=== PATIENT | male | born 1945 | race African-American/Black ===

== ENCOUNTER 2021-04-14 10:10 | Outpatient (REF) | payer MEDICARE, SELFPAY ==
--- NOTE | ~2021-04-14 | XR_ITS ---
EXAMINATION: XR CHEST CLINICAL INFORMATION: Allergic rhinitis. COMPARISON: None TECHNIQUE: 2 views of the chest were obtained. FINDINGS: No significant abnormality is noted involving the heart, lungs, mediastinum, bony thorax or soft tissues. XR/XR chest 2V IMPRESSION: Unremarkable chest examination.
[2021-04-14 11:24] LABS: MANUAL DIFF FLAG NO
[2021-04-14 11:55] LABS: Basophils Percent Auto 0.2 % (0-2); Eosinophils Absolute Auto 0.1 X10*3/uL (0.0-0.4); Eosinophils Percent Auto 1.8 % (0-4); Hematocrit 36.5 % (42.0-52.0); Hemoglobin 12.7 g/dl (14.0-18.0); Imm Gran Abs Auto 0.01 X10*3/uL (0.00-0.03); Imm Gran Pct Auto 0.2 % (0.0-0.4); Lymphocytes Absolute Auto 1.6 X10*3/uL (1.2-4.9); Lymphocytes Percent Auto 35.7 % (20-40); Mean Corpuscular HGB Conc 34.8 g/dl (31.0-36.0); Mean Corpuscular Hemoglobin 31.7 pg (27.0-33.0); Mean Platelet Volume 9.1 fL (9.4-12.4); Monocytes Absolute Auto 0.3 X10*3/uL (0.1-1.2); Neutrophils Absolute Auto 2.4 x10*3/uL (2.0-8.3); Neutrophils Percent Auto 55.1 % (45-73); Platelet Count 205 X10*3/uL (160-400); Red Blood Count 4.01 X10*6/uL (4.60-5.80); Red Cell Distribution Width 12.8 % (11.0-16.0); White Blood Count 4.4 X10*3/uL (4.8-10.8)
[2021-04-14 13:00] LABS: Erythrocyte Sedimentation Rate 39 MM/HR (0-15)
== END 2021-04-14 10:11 | disposition home or self-care (01) ==
LOC: HO.LAB 10:10
PROVIDERS: PCP Internal Medicine; Visit Provider Hospitalist
DX: R06.00 Dyspnea, unspecified (principal); J30.9 Allergic rhinitis, unspecified; G47.33 Obstructive sleep apnea (adult) (pediatric)
CPT/HCPCS: 36415; 71046; 82785; 85025; 85652; 86003; 99202

== ENCOUNTER → 2021-05-29 09:58 | Outpatient (REF) | payer MEDICARE, SELFPAY | LOC: HO.SL 09:58 | PROVIDERS: PCP Internal Medicine; Visit Provider Hospitalist | DX: G47.33 Obstructive sleep apnea (adult) (pediatric) (principal) | CPT/HCPCS: 95806 ==

== ENCOUNTER 2021-06-19 10:49 | Outpatient (REF) | payer MEDICARE, SELFPAY ==
--- NOTE | 2021-06-19 16:56 | PFT_ITS ---
INDICATION: Dyspnea. SPIROMETRY: FEV1 to FVC of 85% with an FEV1 of 2.21 L which is 97% predicted and an FVC of 2.6 L, which is 84% predicted. No significant response to bronchodilators noted. Maximum voluntary ventilation 81% predicted. LUNG VOLUMES: Total lung capacity 76% predicted. DIFFUSION CAPACITY: DLCO 72% predicted. COMPARISONS: None. INTERPRETATION: No obstructive ventilatory defect. No significant response to bronchodilators noted. Maximum voluntary ventilation is within normal limits. Lung volumes demonstrate a restrictive ventilatory defect, consistent with mild restrictive lung disease. In addition to that, the patient does have a mild diffusion impairment, it does correct to normal when correcting for the alveolar volume. Clinical correlation is warranted. Marco Antonio Tapia MD MR/MODL / [id number]
== END 2021-06-19 10:50 | disposition home or self-care (01) ==
LOC: HO.RESP 10:49
PROVIDERS: PCP Internal Medicine; Visit Provider Hospitalist
DX: R06.00 Dyspnea, unspecified (principal)
CPT/HCPCS: 94060; 94727; 94729

== ENCOUNTER → 2021-07-07 11:07 | Outpatient (BNVA) | payer MEDICARE, SELFPAY | PROVIDERS: PCP Internal Medicine; Visit Provider Hospitalist | DX: R06.00 Dyspnea, unspecified (principal); J30.9 Allergic rhinitis, unspecified; J98.4 Other disorders of lung; G47.33 Obstructive sleep apnea (adult) (pediatric) | CPT/HCPCS: 99212 ==

== ENCOUNTER → 2021-11-15 11:00 | Outpatient (BNVA) | payer MEDICARE, SELFPAY | PROVIDERS: PCP Internal Medicine; Visit Provider Hospitalist | DX: J98.4 Other disorders of lung (principal); G47.33 Obstructive sleep apnea (adult) (pediatric); R06.00 Dyspnea, unspecified; J30.9 Allergic rhinitis, unspecified | CPT/HCPCS: 99212 ==

== ENCOUNTER → 2022-03-28 09:27 | Outpatient (BNVA) | payer MEDICARE, SELFPAY | PROVIDERS: PCP Internal Medicine; Visit Provider Hospitalist | DX: G47.33 Obstructive sleep apnea (adult) (pediatric) (principal); R06.00 Dyspnea, unspecified; J98.4 Other disorders of lung; J30.9 Allergic rhinitis, unspecified | CPT/HCPCS: 99212 ==

== ENCOUNTER 2022-07-18 08:01 | Outpatient (REF) | payer MEDICARE, SELFPAY ==
--- NOTE | 2022-07-18 08:49 | PFT_ITS ---
Forced vital capacity 88%, FEV1 94%. FEV1/FVC ratio is 78. FPW01-49 is 98% and MVV 85%. Post bronchodilator therapy, there is no significant change. Total lung capacity 81%. Residual volume 100%. Diffusion capacity 78%. CONCLUSION: Normal pulmonary function test. No evidence of obstructive or restrictive pulmonary disorder. Clinical correlation recommended. MD SANTOS Campos/MODL / [id number]
== END 2022-07-18 08:02 | disposition home or self-care (01) ==
LOC: HO.RESP 08:01
PROVIDERS: PCP Internal Medicine; Visit Provider Hospitalist
DX: J98.4 Other disorders of lung (principal)
CPT/HCPCS: 94010; 94727; 94729

== ENCOUNTER → 2022-08-01 09:25 | Outpatient (BNVA) | payer MEDICARE, SELFPAY | PROVIDERS: PCP Internal Medicine; Visit Provider Hospitalist | DX: J98.4 Other disorders of lung (principal); J30.9 Allergic rhinitis, unspecified; R06.00 Dyspnea, unspecified; G47.33 Obstructive sleep apnea (adult) (pediatric) | CPT/HCPCS: 99212 ==

== ENCOUNTER 2024-02-03 10:48 | Outpatient (AMB) | payer MEDICARE, SELFPAY ==
--- NOTE | 2024-02-03 10:58 | A.OFFVIS_ITS ---
Vital Signs 02/03/24 10:59 Height 5 ft 9 in Weight 191 lb BMI 28.2 BP 134/72 Blood Pressure Location Lt brachial Position Sitting Pulse 79 Pulse Source Doppler Pulse Oximetry (%) 98 Oxygen Delivery Method Room Air Intake Visit Reasons: COPD Allergies codeine Allergy (Severe, Verified 02/03/24 11:02) Hallucinations morphine Allergy (Severe, Verified 02/03/24 11:02) Palpitations HPI Comments Details: The patient is a 78-year-old gentleman with a known history of a deviated septum and nasal congestion which been experiencing increasing cough and shortness of breath for the last few months. She feels the cough is related to a postnasal drip. Usually worse at nighttime. He has never been tested for allergies. He was seen by ENT who recommended that he have surgery for his deviated septum. Although, they could not guarantee that his symptoms would improve completely if he did have surgery. So therefore, he decided to hold off on any surgical interventions. He was responding fairly well to nasal steroid spray. In addition to that he was rinsing with the Neti pot. Although the fluid would not completely come out his right side where he has mostly deviated. short of breath going up a flight of stairs. Usually is to rest at the end. Denies any significant coughing or chest tightness or wheezing. He has never used any inhalers. He denies having any cardiac issues. The patient is also having some daytime drowsiness. He does wake up tired. His does report that he has been snoring. His Brickeys score is elevated 9/24. The patient does need to have a home sleep study done. 07/07/2021 the patient is here for a pulmonary follow-up visit. The patient continues to have some daytime drowsiness. His Brickeys score still elevated 9/24. He did undergo a home sleep study which we did review. The patient does have mild sleep apnea. However he is symptomatic and also has increased car diovascular risk factors including high blood pressure and cholesterol. Therefore, the patient needs to start PAP therapy. Will make arrangements with local [employer] in order for him to do so. In addition to that he is working with ENT regarding his deviated nasal septum. Apparently is going to have the corrected. In view of the nasal septal deviation the patient should look for fullface mask to avoid too much irritation to the nasal passages. Otherwise he continues to visit his own nasal spray in the nasal rinsing. In addition to that we did review his pulmonary function studies that he had Recently. Demonstrated a mild restrictive ventilatory defect of unclear etiology. He had a chest x-ray last year that I did review without any acute disease. In view of the restrictive lung disease will have him undergo a repeat chest x-ray. If he continues to be symptomatic and the x-ray is not helpful we can consider additional imaging including CT scan of the chest. 11/15/21 The patient is here for a pulmonary follow up visit. Overall he is doing good. He is tolerating the APAP very well. He is using a F30 mask. AHI is down to 0.3. Avg pressure is 11 cm. He has been using the cpap more than4 hours a night. We also review his CXR with no acute disease. Denies any dyspnea on exertion. IF he develops any worsening respiratory symptoms we will consider a CT chest. After using the CPAP he is still experiencing some daytime drowsiness. He will start increasing his exercise activity during the day in hopes of increasing his metabolism. He will call if he continues with persistent drowsiness. 03/28/2022 the patient is here for a pulmonary follow-up visit. The patient is overall doing well. Although he is complaining of in irritated throat. He did call the company and therefore the increase his humidity up to 6. He has noticed that now he is having increased water buildup and also running out of water resulting in having to wake up to put more water and machine. Any still having issues with low. Even on the current CPAP settings he is having snoring specially when he lays on his back. We did download his machine that he had available. His AHI is down to 2 which is reassuring although his average pressure is around 11.8 suggesting that the current settings of 6-12 are not sufficient for his degree of sleep apnea specially when he is laying on his back . Therefore I did increase his pressures to 14 maximum pressure with hopes that he stop snoring. He may indeed need more pressure however he will call if he still having issues. I also decreased his humidity down to 4 and he is going to monitor closely. I do believe we did issues that he is having he will do better with a heated tubing. I will request the [employer] at this time provided with the heated circuit in order to improve his humidity and tolerance of the CPAP therapy. Respiratory status is stable otherwise patient is without any other complaints. 08/01/2022 the patient is here for a pulmonary follow-up visit. Overall the patient has been doing fairly well. Continues to have some dyspnea on exertion mild in severity. But otherwise no significant symptoms. We did review his pulmonary function studies demonstrating no definitive obstructive nor restrictive ventilatory defects. The restriction has improved now. Although is still low normal. The patient continues uses CPAP. CPAP therapy continues to be affecting beneficial. Seems to be working better at this time. He does use it every night. More than 4 hours a night. He will continue to use it therapy. At this point since his PFTs are better no additional imaging studies required. Although if his symptoms worsen I will have an x-ray available for him to get. Otherwise will follow-up in a year's time. 02/03/2024 the patient is here for a pulmonary follow-up visit. The patient overall is doing well. He continues uses CPAP every night. CPAP therapy continues to be affecting beneficial. Although sometimes he findings of snoring while wearing his CPAP. I did download the machine. The AHI is down to 1.8. Although his maximum pressure is 14 cm in sometimes he needs that in likely more. Therefore increase his maximum pressure to 15 cm. Will keep it that way to minimize him not tolerating the pressures. Explained to him that although he has some snoring his significant sleep apnea is being doubt with effectively. He does complaint of nasal congestion at times. He did follow-up with ENT and he did have a CT scan of the sinuses at [facility]. They deem them that he does not need surgery. He continues on the fluticasone nasal spray and I will send him an ipratropium nasal spray that he can use as needed to dry up his secretions. To note on his physical exam I did believe he had a very slight murmur systolic /6 but a pronounced S2 bringing up the question of pulmonary hypertension. Therefore have him get an echocardiogram just to make sure. [facility] Medical History (Updated 02/03/24 @ 21:31 by Marco Antonio Tapia MD) Murmur, cardiac Chronic restrictive lung disease History of prostate cancer GERD (gastroesophageal reflux disease) Gout Hyperlipidemia Hypertension Deviated septum ELIA (obstructive sleep apnea) Dyspnea Chronic allergic rhinitis Surgical History (Updated 07/07/21 @ 09:08 by Samantha Harris PA-C) History of colonoscopy Social History (Updated 04/14/21 @ 10:29 by JOHANNY Balderas) Patient Tobacco Use Status: Never used Tobacco Review of Systems Const Denies daytime sleepiness, Denies difficulty sleeping, Reports snoring and Denies stops breathing during sleep Eyes Denies change in vision ENT Denies change in voice, Reports nasal congestion, Reports nasal discharge, Reports nasal obstruction and Reports post nasal drip Card Denies chest pain and Denies dyspnea on exertion Resp Reports cough, Denies dyspnea on exertion and Reports snoring GI Reports no additional complaints Musc Reports no additional complaints Physical Exam Vital Signs: Last Vital Signs Pulse 79 02/03/24 10:59 BP 134/72 02/03/24 10:59 Pulse Ox 98 02/03/24 10:59 Oxygen Delivery Method Room Air 02/03/24 10:59 BMI result Body Mass Index 28.2 Const General: alert Neck Neck: Yes normal visual inspection, Yes full ROM and Yes no lymphadenopathy Chest Chest palpation & inspection: normal inspection of the chest Resp Auscultation: clear to auscultation bilaterally Cardio Rate: regular rate Rhythm: regular rhythm Heart sounds: S1 normal heart sound present, S2 normal heart sound present, Murmur heart sound present systolic soft and I/ and Abnormal heart opening sounds loud S2 GI Palpation (GI): Soft to palpation and nontender Auscultation: normal bowel sounds Skin General skin exam: rashes and/or lesions noted Assessment & Plan Assessment & Plan (1) Chronic restrictive lung disease: Code(s): J98.4 - Other disorders of lung Category: Medical (2) ELIA (obstructive sleep apnea): Code(s): G47.33 - Obstructive sleep apnea (adult) (pediatric) Category: Medical (3) Dyspnea: Code(s): R06.00 - Dyspnea, unspecified Category: Medical Qualifiers: Dyspnea type: dyspnea on exertion Qualified Code(s): R06.00 - Dyspnea, unspecified (4) Chronic allergic rhinitis: Code(s): J30.9 - Allergic rhinitis, unspecified Category: Medical (5) Murmur, cardiac: Code(s): R01.1 - Cardiac murmur, unspecified Category: Medical Plan continue APAP therapy, adjusted 6-14 to 6-15, humidity 6 to 4 continue nasal rinsing exercise routine ECHO atrovent nasal spray as needed continue fluticasone F/U 12 months Orders: Orders CA echo transthoracic complete Today I27.20 - Pulmonary hypertension, unspecified Medications: New ipratropium bromide administer into each nostril 2 sprays intranasal TID PRN 15 mL 6RF allergy symptoms Coding Level of Care Code Est Pt Level 4 (89715) Diagnoses Chronic restrictive lung disease J98.4 ELIA (obstructive sleep apnea) G47.33 Dyspnea on exertion R06.00 Dyspnea type: dyspnea on exertion Chronic allergic rhinitis J30.9 Murmur, cardiac R01.1 Time Spent (min) 17
[2024-02-03 10:59] VITALS: BP 134/72; PULSE 79; O2SAT 98; BMI 28.2
== END 2024-02-03 11:33 | disposition home or self-care (01) ==
PROVIDERS: PCP Internal Medicine; Visit Provider Hospitalist
DX: J98.4 Other disorders of lung (principal); G47.33 Obstructive sleep apnea (adult) (pediatric); R06.00 Dyspnea, unspecified; J30.9 Allergic rhinitis, unspecified; R01.1 Cardiac murmur, unspecified
CPT/HCPCS: 99214

== ENCOUNTER → 2024-02-03 10:48 | Outpatient (BNVA) | payer MEDICARE, SELFPAY | PROVIDERS: PCP Internal Medicine; Visit Provider Hospitalist | DX: J98.4 Other disorders of lung (principal); J30.9 Allergic rhinitis, unspecified; G47.33 Obstructive sleep apnea (adult) (pediatric); R06.00 Dyspnea, unspecified; R01.1 Cardiac murmur, unspecified | CPT/HCPCS: 99212 ==

== ENCOUNTER → 2024-02-12 13:29 | Outpatient (REF) | payer MEDICARE, SELFPAY ==
--- NOTE | 2024-02-12 13:35 | CA_ITS ---
Transthoracic Echocardiogram Patient (Last, First, Middle): Logan Woodward E Gender: Male Date of : 1945 Age: 78 Procedure Date: 02/12/2024 Procedure Type: Transthoracic Echocardiogram Location: OP Height: 175.26 cm Weight: 86.18 kg BSA: 2.02 m2 Heart Rate: bpm BP: 134 / 71 mmHg Distributor Publications: DARIAN Referring MD: Marco Antonio Tapia MD Symptoms: I27.20 - Pulmonary hypertension, unspecified Study Quality: Adequate ECG Rhythm: Sinus Conclusions: - The left ventricular systolic function is normal. The calculated ejection fraction is 67% by biplane method. - There is moderate septal asymmetric hypertrophy. - No obvious valvular pathology seen on this study. - There is no evidence of pulmonary hypertension. Findings Left Ventricle Normal left ventricular cavity size. There is mildly increased left ventricular wall thickness. The left ventricular systolic function is normal. The calculated ejection fraction is 67% by biplane method. There is no evidence of regional wall motion abnormalities. Diastolic function is normal for age. There is moderate septal asymmetric hypertrophy. Right Ventricle Normal right ventricular cavity size and systolic function. Aortic Valve There is a normal trileaflet aortic valve. There is no aortic valve stenosis. There is no aortic valve regurgitation. Mitral Valve The mitral valve appears normal. There is no mitral valve regurgitation. There is no mitral valve stenosis. Pulmonic Valve There is trace pulmonic valve regurgitation. Tricuspid Valve Normal tricuspid valve structure. There is trace tricuspid valve regurgitation. There is no evidence of pulmonary hypertension. Great Vessels The asc aorta is normal in size. Venous The inferior vena cava is normal in size and collapses greater than 50% with inspiration. Pericardium/Pleural There is no evidence of pericardial effusion. Prior Study Comparison No prior study available for comparison. Recommendations, Care & Conclusions No obvious valvular pathology seen on this study. Measurements 2D Linear Measurements IVSd: 1.34 0.6-0.9/0.6-1.0 cm LVIDd: 3.68 3.9-5.3/4.2-5.9 cm LVIDd Index: 1.82 2.4-3.2/2.2-3.1 cm/m2 LVIDs: 2.08 2.0-3.6 cm LVPWd: 1.08 0.7-1.1 cm LA Diam: 3.50 2.7-3.8/3.0-4.0 cm LAIDs Index: 1.73 1.5-2.3 cm/m2 LV Mass: 184.23 67-162/88-224 g LV Mass Index: 91.20 43-95/49-115 g/m2 LVOT Diam: 2.30 3.0+(-)1.3 cm 2D Systolic Function EF 4C: 68.90 >55% EF 2C: 66.70 >55% EF BiP: 67.30 >55% Mitral Valve MV Pk E: 0.81 MV PK A: 0.97 MV Decel Time: 178.00 E/A: 0.80 E'Lateral: 7.18 E'Medial: 5.66 E/E' Med: 14.20 E/E' Lat: 11.20 PHT: 52.00 MVA PHT: 4.23 Decel Hall: 4.52 Aortic Valve AoV Pk Jet: 1.05 AoV Mn Jet: 0.80 AoV VTI: 0.24 AoV Pk Grad: 4.00 Aov Mn Grad: 3.00 MICHELLE Cont.VTI: 3.35 LVOT LVOT Pk Jet: 0.95 LVOT Mn Jet: 0.65 LVOT VTI: 0.19 LVOT Pk Grad: 4.00 LVOT Mn Grad: 2.00 LVOT Diam: 2.30 LVOT Area: 4.15 Diastolic Function MV Pk E: 0.81 MV Pk A: 0.97 E/A: 0.80 E'Medial: 5.66 E/E' Med: 14.20 E' Laterial: 7.18 E/E' Lat: 11.20 Right Ventricle TAPSE (mm): 21.70 TVS' Jet: 12.60 Tricuspid Valve TR Pk Jet: 2.05 TR Pk Grad: 17.00 RA Press: 3.00 RVSP: 20.00 Great Vessels Aorta Sinus of Valsalva: 3.74 2.0-3.[address] Ridge: 2.56 1.7-3.4 cm Ao Asc: 3.60 2.1-3.4 cm Updated in Other Vendor System with Status of Final Hermann Cartagena MD electronically signed on 02/14/2024 11:35:03 AM with status of Final
== END ==
LOC: HO.CARD 13:29
PROVIDERS: PCP Internal Medicine; Visit Provider Hospitalist
DX: I27.20 Pulmonary hypertension, unspecified (principal)
CPT/HCPCS: 93306

== ENCOUNTER → 2024-02-12 13:35 | Outpatient (BNV) | payer MEDICARE, SELFPAY | PROVIDERS: PCP Internal Medicine; Visit Provider Internal Medicine | DX: I42.2 Other hypertrophic cardiomyopathy (principal) | CPT/HCPCS: 93306 ==

== ENCOUNTER 2025-01-29 10:44 | Outpatient (AMB) | payer MEDICARE, SELFPAY ==
--- OUTSIDE RECORDS SUMMARY | 2025-01-27 13:00 | XMS_ITS | Encounter Summary ---
Author Organization [facility] Address [address] [place] [address] Care Team Providers Care Home [employer] Service [employer]er Name Role Phone Wendy Helms MD Primary Care Provider [phone] Reason for Visit * Cardiac Stress Testing (Routine) - Authorized Specialty Diagnoses / Procedures Referred By Contac t Referred To Contact Cardiology Diagnoses Shortness of breath Procedures Nuclear stress test with myocardial perfusion WA MYOCARDIAL PERFUSION IMAGING TOMOGRAPHIC MULTI STUDIES AT REST OR STRESS WA MYOCARDIAL PERFUSION IMAGING TOMOGRAPHIC SINGLE STUDY AT REST OR STRESS WA CARDIOVASCULAR STRESS TEST GLOBAL WA CV TMST/BIKE MAX/SUBMAX CONTINUOUS ECG MON/PHARM STRESS SUPVSR ONLY WA CV STRESS TEST/BIKE CONT ECG MON/PHARM STRESS INTERP & REPORT ONLY WA TEST STRESS CARDIOVASCULAR TRACING ONLY Gladis Berumen NP [address] [place] [address] Dr [address] [place] [id number] Phone: tel: fax: [facility] Referral ID Status Reason Start Date Expiration Date V isits Requested Visits Authorized [id number] Authorized 01/06/2025 01/06/2026 3 3 Encounter Details Date Type Department Care Team (Latest Contact Info) Description 01/27/2025 1:00 PM EST Ancillary Procedure [facility] [address] [place] [address] Shortness of breath Social History Tobacco Use Types Packs/Day Years Used Date Smoking Tobacco: Never Smokeless Tobacco: Never Alcohol Use Standard Drinks/Week Comments Never 0 (1 standard drink = 0.6 oz pur e alcohol) Interpersonal Safety Answer Date Record ed Physical Abuse Unrecognized value 11/05/2024 Verbal Abuse Unrecognized value 11/05/2024 Sex and Gender Information Value Date Recorded Sex Assigned at Not on file Legal Sex Male 2:18 AM EST Gender Identity Not on file Sexual Orientation Not on file documented as of this encounter Last Filed Vital Signs Vital Sign Reading Time Taken Comments Blood Pressure 148/88 01/27/2025 12:55 PM EST Pulse - - Temperature - - Respiratory Rate - - Oxygen Saturation - - Inhaled Oxygen Concentration - - Weight 83.9 kg (185 lb) 01/27/2025 12:55 PM EST Height 175.3 cm (5' 9 ) 01/27/2025 12:55 PM EST Body Mass Index 27.32 01/27/2025 12:55 PM EST documented in this encounter Plan of Treatment Pending Results Name Type Priority Associated Diagnoses Date /Time Nuclear stress test with myocardial perfusion Cardiac Nuclear Medicine Routine Shortness of breath 01/27/2025 2:47 PM EST documented as of this encounter Procedures Procedure Name Priority Date/Time Associated Diagnosis Comments NM EXERCISE STRESS TEST W/ MYOCARDIAL PERFUSION Routine 01/27/2025 2:47 PM EST Shortness of breath Procedure Note - Gladis Berumen NP / Alejandro Dexter MD - 01/27/2025 2:47 PM ESTThis note is in progress. Exercise stress test was performed. Patient reported no chest painduring the stress test. Exercise capacity was average. Normal bloodpressure response. Stress ejection fraction is 85%. Findings Stress Findings A Akbar protocol stress test was performed. Overall, the patient's exercise capacity was average. Total stress time was 4 min and 30 sec. The test was stopped because the patient experienced fatigue. Blood pressure demonstrated a normal response. Heart rate demonstrated a normal response. The patient reported no chest pain or dyspnea during the stress test. ECG 79 year old male with reports of dyspnea on exertion. PMH includes HTN and HLD. The ECG shows normal sinus rhythm. The ECG axis is normal. There were no arrhythmias during stress. There is no significant ST abnormalities during stress meeting criteria for ischemia. Arrhythmias during recovery: occasional premature ventricular contractions (PVCs) in early recovery. Nuclear Study Quality Study technique: MPI, SPECT, multi, rest and stress, 1 day and gated. Overall image quality is good. CT attenuation correction was utilized. No radiopharmaceutical dose was extravasated. Stress Function Comments Stress ejection fraction is 85%. Rest Function Comments Resting ejection fraction was 78%. documented in this encounter Visit Diagnoses Diagnosis Shortness of breath documented in this encounter Administered Medications Inactive Administered Medications - up to 3 most recent administrations Medication Order MAR Action Action Date Dose Rate Site TC-99M tetrofosmin P radio-isotope injection 31.1 millicurie 31.1 millicurie, intravenous, Once in imaging, Starting on Sat01/27/25 at 1400, For 1 dose Given 01/27/2025 1:50 PM EST 31.1 millicuries TC-99M tetrofosmin P radio-isotope injection 9.9 millicurie 9.9 millicurie, intravenous, Once in imaging, Starting on Sat01/27/25 at 1251, For 1 dose Given 01/27/2025 12:52 PM EST 9.9 millicuries documented in this encounter Care Teams Home [employer] Service [employer]er Relationship Specialty Start Date End Date Wendy Helms MD [address] [place] [address] PCP - General Internal Medicine 10/20/24 documented as of this encounter
[2025-01-29 10:50] VITALS: BP 130/66; PULSE 84; O2SAT 97; BMI 27.2
--- NOTE | 2025-01-29 10:50 | MHC.OFFVIS ---
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 She feels the cough is related to a postnasal drip. Usually worse at nighttime. He has never been tested for allergies. He was seen by ENT who recommended that he have surgery for his deviated septum. Although, they could not guarantee that his symptoms would improve completely if he did have surgery. So therefore, he decided to hold off on any surgical interventions. He was responding fairly well to nasal steroid spray. In addition to that he was rinsing with the Neti pot. Although the fluid would not completely come out his right side where he has mostly deviated. short of breath going up a flight of stairs. Usually is to rest at the end. Denies any significant coughing or chest tightness or wheezing. He has never used any inhalers. He denies having any cardiac issues. The patient is also having some daytime drowsiness. He does wake up tired. His does report that he has been snoring. His [place] score is elevated 9/24. The patient does need to have a home sleep study done. 07/07/2021 the patient is here for a pulmonary follow-up visit. The patient continues to have some daytime drowsiness. His [place] score still elevated 9/24. He did undergo a home sleep study which we did review. The patient does have mild sleep apnea. However he is symptomatic and also has increased cardiovascular risk factors including high blood pressure and cholesterol. Therefore, the patient needs to start PAP therapy. Will make arrangements with local [employer] in order for him to do so. In addition to that he is working with ENT regarding his deviated nasal septum. Apparently is going to have the corrected. In view of the nasal septal deviation the patient should look for fullface mask to avoid too much irritation to the nasal passages. Otherwise he continues to visit his own nasal spray in the nasal rinsing. In addition to that we did review his pulmonary function studies that he had Recently. Demonstrated a mild restrictive ventilatory defect of unclear etiology. He had a chest x-ray last year that I did review without any acute disease. In view of the restrictive lung disease will have him undergo a repeat chest x-ray. If he continues to be symptomatic and the x-ray is not helpful we can consider additional imaging including CT scan of the chest. 11/15/21 The patient is here for a pulmonary follow up visit. Overall he is doing good. He is tolerating the APAP very well. He is using a F30 mask. AHI is down to 0.3. Avg pressure is 11 cm. He has been using the cpap more than4 hours a night. We also review his CXR with no acute disease. Denies any dyspnea on exertion. IF he develops any worsening respiratory symptoms we will consider a CT chest. After using the CPAP he is still experiencing some daytime drowsiness. He will start increasing his exercise activity during the day in hopes of increasing his metabolism. He will call if he continues with persistent drowsiness. 03/28/2022 the patient is here for a pulmonary follow-up visit. The patient is overall doing well. Although he is complaining of in irritated throat. He did call the company and therefore the increase his humidity up to 6. He has noticed that now he is having increased water buildup and also running out of water resulting in having to wake up to put more water and machine. Any still having issues with low. Even on the current CPAP settings he is having snoring specially when he lays on his back. We did download his machine that he had available. His AHI is down to 2 which is reassuring although his average pressure is around 11.8 suggesting that the current settings of 6-12 are not sufficient for his degree of sleep apnea specially when he is laying on his back. Therefore I did increase his pressures to 14 maximum pressure with hopes that he stop snoring. He may indeed need more pressure however he will call if he still having issues. I also decreased his humidity down to 4 and he is going to monitor closely. I do believe we did issues that he is having he will do better with a heated tubing. I will request the [employer] at this time provided with the heated circuit in order to improve his humidity and tolerance of the CPAP therapy. Respiratory status is stable otherwise patient is without any other complaints. 08/01/2022 the patient is here for a pulmonary follow-up visit. Overall the patient has been doing fairly well. Continues to have some dyspnea on exertion mild in severity. But otherwise no significant symptoms. We did review his pulmonary function studies demonstrating no definitive obstructive nor restrictive ventilatory defects. The restriction has improved now. Although is still low normal. The patient continues uses CPAP. CPAP therapy continues to be affecting beneficial. Seems to be working better at this time. He does use it every night. More than 4 hours a night. He will continue to use it therapy. At this point since his PFTs are better no additional imaging studies required. Although if his symptoms worsen I will have an x-ray available for him to get. Otherwise will follow-up in a year's time. 02/03/2024 the patient is here for a pulmonary follow-up visit. The patient overall is doing well. He continues uses CPAP every night. CPAP therapy continues to be affecting beneficial. Although sometimes he findings of snoring while wearing his CPAP. I did download the machine. The AHI is down to 1.8. Although his maximum pressure is 14 cm in sometimes he needs that in likely more. Therefore increase his maximum pressure to 15 cm. Will keep it that way to minimize him not tolerating the pressures. Explained to him that although he has some snoring his significant sleep apnea is being doubt with effectively. He does complaint of nasal congestion at times. He did follow-up with ENT and he did have a CT scan of the sinuses at [facility]. They deem them that he does not need surgery. He continues on the fluticasone nasal spray and I will send him an ipratropium nasal spray that he can use as needed to dry up his secretions. To note on his physical exam I did believe he had a very slight murmur systolic /6 but a pronounced S2 bringing up the question of pulmonary hypertension. Therefore have him get an echocardiogram just to make sure. 01/29/2025 the patient is here for pulmonary follow-up visit. Overall the patient has been doing okay. He did follow-up with cardiology and did undergo a cardiac MR. He does not know the results. The echocardiogram that we did demonstrate some degree some hypertrophy of his heart. Therefore will see what the ultimate result of the MRIs. From a breathing standpoint seems to be doing okay denies any significant shortness of breath. He does complain about his right nostril being obstructed. The patient was referred to ENT. He had seen ENT in the past and have recommended surgery but he opted not to go for surgery at that time. He does have what appears to be a deviated septum and blockage that right nostril. Makes it hard for him to tolerate the CPAP. Although he understands CPAP therapies very effective for his heart decreasing his cardiovascular risk factors. Therefore I did suggest that he use some breathe right strips specially since he is not going to get any relief from any nasal sprays. Unfortunately he can not use Sudafed because of his cardiac situation and Afrin can only be cause problems a few useful in long-term basis. Therefore will try to breathe rising follow-up with ENT and needs to continue to use his CPAP. Will request a mask fitting with a CPAP DME company to try to get him into a better fitting mask for his comfort. The patient follow-up in 6 months if any issues arise he can always call for further recommendations. [facility] Medical History (Updated 02/03/24 @ 21:31 by Marco Antonio Tapia MD) Murmur, cardiac Chronic restrictive lung disease History of prostate cancer GERD (gastroesophageal reflux disease) Gout Hyperlipidemia Hypertension Deviated septum ELIA (obstructive sleep apnea) Dyspnea Chronic allergic rhinitis Surgical History (Updated 07/07/21 @ 09:08 by Samantha Harris PA-C) History of colonoscopy Social History Patient Tobacco Use Status: Never used Tobacco Review of Systems Const Denies chills, Reports daytime sleepiness, Denies fatigue, Denies fever(s), Denies weight gain and Denies weight loss Eyes Denies change in vision ENT Denies dizziness Card Denies chest pain, Denies leg edema, Denies lightheadedness, Denies palpitations, Denies dyspnea on exertion, Denies orthopnea and Denies other Resp Denies cough and Denies dyspnea on exertion GI Denies hematochezia and Denies change in stool character Musc Denies abnormal gait, Denies muscle weakness, Denies numbness, Denies radiating pain into limb and Denies tingling Neuro Denies abnormal gait, Denies dizziness, Denies numbness and Denies tingling Endo Denies fatigue and Denies palpitations Physical Exam Vital Signs: Last Vital Signs Pulse 84 01/29/25 10:50 BP 130/66 01/29/25 10:50 Pulse Ox 97 01/29/25 10:50 Oxygen Delivery Method Room Air 01/29/25 10:50 BMI result Body Mass Index 27.2 Const General: alert Neck Neck: Yes normal visual inspection, Yes full ROM and Yes no lymphadenopathy Chest Chest palpation & inspection: normal inspection of the chest Resp Auscultation: clear to auscultation bilaterally Cardio Rate: regular rate Rhythm: regular rhythm Heart sounds: S1 normal heart sound present, S2 normal heart sound present, Murmur heart sound present systolic soft and I/ and Abnormal heart opening sounds loud S2 GI Palpation (GI): Soft to palpation and nontender Auscultation: normal bowel sounds Skin General skin exam: rashes and/or lesions noted Assessment & Plan Assessment & Plan (1) Chronic restrictive lung disease: Code(s): J98.4 - Other disorders of lung Category: Medical (2) ELIA (obstructive sleep apnea): Code(s): G47.33 - Obstructive sleep apnea (adult) (pediatric) Category: Medical (3) Dyspnea: Code(s): R06.00 - Dyspnea, unspecified Category: Medical Qualifiers: Dyspnea type: dyspnea on exertion Qualified Code(s): R06.00 - Dyspnea, unspecified (4) Chronic allergic rhinitis: Code(s): J30.9 - Allergic rhinitis, unspecified Category: Medical (5) Murmur, cardiac: Code(s): R01.1 - Cardiac murmur, unspecified Category: Medical Plan continue APAP therapy, 6-15, humidity 6 to 4. Needs mask fitting continue nasal rinsing exercise routine ECHO-hypertrophy atrovent nasal spray as needed continue fluticasone ENT referral pending F/U 12 months Coding Level of Care Code Est Pt Level 4 (71628) Diagnoses Chronic restrictive lung disease J98.4 ELIA (obstructive sleep apnea) G47.33 Dyspnea on exertion R06.00 Dyspnea type: dyspnea on exertion Chronic allergic rhinitis J30.9 Murmur, cardiac R01.1 Time Spent (min) 16
--- OUTSIDE RECORDS SUMMARY | 2025-01-29 12:54 | XMS_ITS | Clinical Summary ---
Author Organization [facility] [address] [facility] Address [address] [place] [address] Phone Care Team Providers Care Admitting Office Escort Name Role Phone Wendy Helms MD Primary Care Provider [phone] Allergies Active Allergy Reactions Criticality Noted Date Comments Broccoli 10/29/2024 bloated Cauliflower 10/29/2024 bloated Codeine 06/01/2020 Per patient codeine makes him jittery Lettuce 10/29/2024 Bloated Morphine 06/01/2020 Per patient morphine makes him feel jittery. Medications amLODIPine (NORVASC) 5 mg tablet Take 1 tablet (5 mg total) by mouth 1 (one) time each day. Active atorvastatin (LIPITOR) 40 mg tablet Take 1 tablet (40 mg total) by mouth 1 (one) time each day. Active aspirin 81 mg EC tablet Take 1 tablet (81 mg total) by mouth. Active multivitamin (MULTIPLE VITAMINS ORAL) Take by mouth. Active allopurinoL (ZYLOPRIM) 300 mg tablet Take 1 tablet (300 mg total) by mouth 1 (one) time each day. Active Lactobacillus acidophilus (PROBIOTIC ORAL) Take by mouth. Activ e cholecalciferol (VITAMIN D-3) 50 mcg (2,000 unit) tablet Take 1 tablet (2,000 Units total) by mouth 1 (one) time each day. Active polyethylene glycol (Golytely) 236-22.74-6.74 -5.86 gram solution Take 4L by mouth once for one dose. May substitue any PEG. Starting at 2PM the day before your procedure drink 1 8oz glasses at your own pace until you complete half of the gallon. Finish 2nd half of the gallon at 8PM. 4000 mL 5 Active bisacodyL (DULCOLAX) 5 mg EC tablet Take 2 tablets by mouth right before beginning bowel prep. See instructions provided by the office 2 tablet 5 Active amoxicillin (AMOXIL) 500 mg capsule TAKE 4 CAPSULES BY MOUTH 1 HOUR BEFORE DENTAL APPOINTMENT 4 Active colchicine (MITIGARE) 0.6 mg capsule capsule Take 1 capsule (0.6 mg total) by mouth. 0 Active fluticasone propionate (FLONASE) 50 mcg/actuation nasal spray INHALE 1 - 2 SPRAYS IN EACH NOSTRIL ONCE DAILY NEEDED Active ipratropium (ATROVENT) 42 mcg (0.06 %) nasal spray USE TWO SPRAYS IN EACH NOSTRIL THREE TIMES DAILY NEEDED 5 Active Myrbetriq 50 mg 24 hr tablet Take 1 tablet (50 mg total) by mouth 1 (one) time each day. Active pantoprazole (PROTONIX) 40 mg EC tablet Take 1 tablet (40 mg total) by mouth 1 (one) time each day. Active polyethylene glycol (PEG) 17 gram/dose oral powder STIR 17GM INTO 8 OUNCES OF WATER, OR JUICE, AND DRINK DAILY NEEDED / DIRECTED 5 Active Hospital, Clinic, or Other Facility Administered Medication Ordered Dose Route Frequency Start Date End Date Status TC-99M tetrofosmin P radio-isotope injection 9.9 millicurie 9.9 millicurie IV Once in imaging 01/27/2025 01/27/2025 Ended TC-99M tetrofosmin P radio-isotope injection 31.1 millicurie 31.1 millicurie IV Once in imaging 01/27/2025 01/27/2025 Ende d Active Problems Problem Noted Date Diagnosed Date Mixed hyperlipidemia 10/25/2022 Shortness of breath 10/25/2022 Assessment & Plan (01/06/2025 11:28 AM EST): The patient is reporting dyspnea on exertion. He has cardiac risk factors of hypertension and hyperlipidemia. We will proceed with a nuclear stress test for further evaluation of his symptoms and to rule out ischemia. He denies chest discomfort. He will continue on aspirin, statin and amlodipine. Patient advised to seek emergency medical attention by calling 911 if they were to develop severe dyspnea, chest pain that did not resolve with rest or nitroglycerin, or if they were to faint. Orders: ECG 12 lead Nuclear stress test with myocardial perfusion; Future Cardiac holter monitor (<= 48 hours); Future Abnormal stress test 10/23/2022 HLD (hyperlipidemia) 10/23/2022 Assessment & Plan (01/06/2025 11:28 AM EST): Continue on statin. Primary hypertension 10/23/2022 Assessment & Plan (01/06/2025 11:28 AM EST): Continue on amlodipine. Syncope, cardiogenic 06/01/2020 Encounters Date Type Department Care Team Description 01/27/2025 1:00 PM EST Ancillary Procedure [facility] Cardiology [facility] [address] [place] [id number] Shortness of breath 01/06/2025 10:40 AM EST Office Visit [facility] Cardiology [facility] [address] [place] [address] Dr [address] [place] [phone] Gladis Berumen NP Shortness of breath (Primary Dx); Palpitations; Hyperlipidemia, unspecified hyperlipidemia type; Primary hypertension 01/04/2025 Telephone [facility] Cardiology [facility] [address] [place] [address] Dr [address] [place] [phone] Siobhan Teran MD 11/05/2024 1:07 PM EDT Anesthesia Event [facility] Endoscopy [address] [place] [phone] Dayton Rice MD 11/05/2024 11:27 AM EDT - 11/05/2024 11:59 PM EDT Hospital Encounter [facility] [address] [place] [phone] Jamin Valle MD Elliott, Barbara J, CRNA Dasilva, John E, MD Hx of colonic polyps Discharge Disposition: Home or Self Care from Last 3 Months Surgical History Surgery Date Site/Laterality Comments COLONOSCOPY 09/15/2019 negative--5yr recall COLONOSCOPY 01/15/2014 int hemorrhoids, diverticulosis--5yr recall COLONOSCOPY 07/21/2008 negative TOTAL HIP ARTHROPLASTY Right Medical History Medical History Date Comments Gout DX:Gout GERD (gastroesophageal reflux disease) DX:GERD (gastroesophageal reflux disease) Leukopenia DX:Leukopenia Prostate cancer (CMS/HCC V24, CMS/HCC V28) DX:Prostate cancer (HCC) Prostatic hypertrophy DX:Prostat ic hypertrophy ELIA (obstructive sleep apnea) DX :ELIA (obstructive sleep apnea) Hypertension Hyperlipidemia Family History Medical History Relation Name Comments Prostate cancer Brother Relation Name Status Comments Brother Social History Tobacco Use Types Packs/Day Years [...] on file Sexual Orientation Not on file Obstetrics History Last Filed Vital Signs Vital Sign Reading Time Taken Comments Blood Pressure 148/88 01/27/2025 12:55 PM EST Pulse 80 01/06/2025 10:26 AM EST Temperature 36.9 C (98.5 F) 11/05/2024 1:24 PM EDT Respiratory Rate 21 11/05/2024 1:44 PM EDT Oxygen Saturation 99% 01/06/2025 10:26 AM EST Inhaled Oxygen Concentration - - Weight 83.9 kg (185 lb) 01/27/2025 12:55 PM EST Height 175.3 cm (5' 9 ) 01/27/2025 12:55 PM EST Body Mass Index 27.32 01/27/2025 12:55 PM EST Plan of Treatment Health Maintenance Due Date Last Done Comments DTaP,Tdap,and Td Vaccines (1 - Tdap) 1965 RSV Immunization Adult Patients (1 - 1-dose 75+ series) 2021 Hepatitis C Screening 01/28/2022 Medicare Annual Wellness Visit 01/28/2022 Social Influencers of Health Screening 01/28/2022 Hypertension/CHF/CAD Annual BMP Blood Test 03/26/2023 06/02/2020, 06/02/2020, 06/01/2020, Additional history exists Depression Screening 02/26/2024 Cholesterol Screening (Lipid Panel) 06/02/2025 06/02/2020, 06/02/2020 COVID-19 Vaccine (7 - Pfizer risk 2024- season) 2025 12/21/2024, 02/28/2023, 12/06/2021, Additional history exists Falls Risk Assessment 11/05/2025 11/05/2024 Zoster Vaccines Completed 08/15/2021, 05/18/2021 Influenza Vaccine Completed 10/29/2024, , 12/05/2022, Additional history exists Pneumococcal Vaccine: 50+ Years Completed 10/29/2024, 08/14/2021 Colorectal Cancer Screening: Colonoscopy Discontinued 11/05/2024, 08/27/2024, 01/13/1999 HIB Vaccines Aged Out No longer eligi ble based on patient's age to complete this topic HPV Vaccines Aged Out No longer eligi ble based on patient's age to complete this topic Hepatitis A Vaccines Aged Out No long er eligible based on patient's age to complete this topic Hepatitis B Vaccines Aged Out No long er eligible based on patient's age to complete this topic IPV Vaccines Aged Out No longer eligi ble based on patient's age to complete this topic MMR Vaccines Aged Out No longer eligi ble based on patient's age to complete this topic Meningococcal ACWY Vaccine Aged Out N o longer eligible based on patient's age to complete this topic Meningococcal B Vaccine Aged Out No l onger eligible based on patient's age to complete this topic RSV Immunization Patients Under 20 months Aged Out No longer eligible based on patient's age to complete this topic Varicella Vaccines Aged Out No longer eligible based on patient's age to complete this topic Procedures Procedure Name Priority Date/Time Associated Diagnosis [...] Function Comments Resting ejection fraction was 78%. ECG 12-LEAD Routine 01/06/2025 11:26 AM EST Shortness of breath COLONOSCOPY Routine 11/05/2024 1:23 PM EDT Hx of colonic polyps from Last 3 Months Results * ECG 12 lead (01/06/2025 11:26 AM EST) Ventricular Rate ECG 80 BPM GEMUSE Atrial Rate 80 BPM GEMUSE QRS Duration 110 ms GEMUSE Q-T Interval 372 ms GEMUSE QTc 429 ms GEMUSE R Dorado 102 degrees GEMUSE T [place] 119 degrees GEMUSE ECG Interpretation Normal sinus rhythm Rightward axis Nonspecific T wave abnormality Abnormal ECG When compared with ECG of 17-JUN-2010 11:09, [place] interval has decreased Questionable change in QRS axis ST no longer elevated in Inferior leads T wave inversion no longer evident in Inferior leads Nonspecific T wave abnormality now evident in Lateral leads Confirmed by SIOBHAN TERAN ([id number]) on 01/07/2025 10:06:06 AM GEMUSE 01/06/2025 10:3 0 AM EST 01/07/2025 10:06 AM EST us Gladis Berumen NP ECG ORDERABLES Edited Result - Final GEMUSE * COLONOSCOPY Anesthesia - MAC; [facility] ENDOSCOPY (11/05/2024 1:23 PM EDT) Anatomical Region Laterality Modality Other 11/05/2024 1:02 PM EDT Impressions 11/05/2024 1:24 PM EDT - Diverticulosis in the sigmoid colon. - Multiple non-bleeding colonic angioectasias. - Non-bleeding internal hemorrhoids. - The examination was otherwise normal on direct and retroflexion views. - No specimens collected. Recommendation: - Discharge patient to home. - High fiber diet. - Continue present medications. - Return to my office PRN. Narrative 11/05/2024 1:24 PM EDT [facility] GI Patient Name: Regis Woodward Procedure Date: 11/05/2024 1:02 PM Date of : 1945 Age: 79 Room: ROOM 14 Gender: Male Note Status: Finalized Attending MD: Jamin Valle MD, Procedure Date No Time: 11/05/2024 Procedure: Colonoscopy Indications: High risk colon cancer surveillance: Personal history of colonic polyps Providers: Jamin Valle MD Referring MD: Jamin Valle MD Medicines: Monitored Anesthesia Care Complications: No immediate complications. Estimated Blood Loss: Estimated blood loss: none. Procedure: Pre-Anesthesia Assessment: - ASA Grade Assessment: II - A patient with mild systemic disease. - After reviewing the risks and benefits, the patient was deemed in satisfactory condition to undergo the procedure. After I obtained informed consent, the scope was passed under direct vision. Throughout the procedure, the patient's blood pressure, pulse, and oxygen saturations were monitored continuously.The Colonoscope was introduced through the anus and advanced to the cecum, identified by appendiceal orifice and ileocecal valve. The colonoscopy was performed without difficulty. The patient tolerated the procedure well. The quality of the bowel preparation was good. Findings: A few small-mouthed diverticula were found in the sigmoid colon. Multiple medium-sized diffuse angioectasias without bleeding were found in the distal rectum. Non-bleeding internal hemorrhoids were found during retroflexion. The hemorrhoids were medium-sized. The exam was otherwise without abnormality on direct and retroflexion views. Procedure Code(s): --- Professional --- G0105, Colorectal cancer screening; colonoscopy on individual at high risk Diagnosis Code(s): --- Professional --- Z86.010, Personal history of colonic polyps CPT copyright 2020 [employer]. All rights reserved. The codes documented in this report are preliminary and upon paper inserter review may be revised to meet current compliance requirements. Jamin Valle MD 11/05/2024 1:24:18 PM This report has been signed electronically.Jamin Valle MD Number of Addenda: 0 Note Initiated On: 11/05/2024 1:02 PM Scope In: Scope Out: Endoscopy Department at [facility] - [address] [place] [id number] Procedure Note Jamin Valle MD - 11/05/2024 [facility] GI Patient Name: Regis Woodward Procedure Date: 11/05/2024 1:02 PM Date of : 1945 Age: 79 Room: ROOM 14 Gender: Male Note Status: Finalized Attending MD: Jamin Valle MD, Procedure Date No Time: 11/05/2024 Procedure: Colonoscopy Indications: High risk colon cancer surveillance: Personalhistory of colonic polyps Providers: Jamin Valle MD Referring MD: Jamin Valle MD Medicines: Monitored Anesthesia Care Complications: No immediate complications. Estimated Blood Loss: Estimated blood loss: none. Procedure: Pre-Anesthesia Assessment: - ASA Grade Assessment: II - A patient with mild systemic disease. - After reviewing the risks and benefits, thepatient was deemed in satisfactory condition to undergo the procedure. After I obtained informed consent, the scope was passed under direct vision. Throughout theprocedure, the patient's blood pressure, pulse, and oxygen saturations were monitored continuously.The Colonoscope was introduced through the anus and advanced to the cecum, identified by appendiceal orifice and ileocecal valve. The colonoscopy was performed without difficulty. The patient tolerated the procedure well. The quality of the bowel preparation was good. Findings: A few small-mouthed diverticula were found in the sigmoid colon. Multiple medium-sized diffuse angioectasias without bleeding were found in the distal rectum. Non-bleeding internal hemorrhoids were found during retroflexion. The hemorrhoids were medium-sized. The exam was otherwise without abnormality ondirect and retroflexion views. Procedure Code(s): --- Professional --- G0105, Colorectal cancer screening; colonoscopy on individual at high risk Diagnosis Code(s): --- Professional --- Z86.010, Personal history of colonic polyps CPT copyright 2020 [employer]. All rights reserved. The codes documented in this report are preliminary and upon paper inserter reviewmay be revised to meet current compliance requirements. Jamin Valle MD 11/05/2024 1:24:18 PM This report has been signed electronically.Jamin Valle MD Number of Addenda: 0 Note Initiated On: 11/05/2024 1:02 PM Scope In: Scope Out: Endoscopy Department at [facility] - [address] [place] [id number] IMPRESSION: - Diverticulosis in the sigmoid colon. - Multiple non-bleeding colonic angioectasias. - Non-bleeding internal hemorrhoids. - The examination was otherwise normal on directand retroflexion views. - No specimens collected. Recommendation: - Discharge patient to home. - High fiber diet. - Continue present medications. - Return to my office PRN. us Jamin Valle MD GI~PROCEDURE ORDERABLES Final Result from Last 3 Months Insurance MEDICARE [facility] Care Teams Admitting Office Escort Relationship Specialty Start Date End Date Wendy Helms MD [address] [address] PCP - General Internal Medicine 10/20/24
--- OUTSIDE RECORDS SUMMARY | 2025-01-29 12:54 | XMS_ITS | Encounter Summary ---
Author Organization [employer] Address [address] [place] [address] [address] [address] Care Team Providers Care Payroll Benefits Clerk Name Role Phone Unavailable Primary Care Provider Unavailabl e Encounter Details Date Type Department Care Team (Latest Contact Info) Description 03/18/2018 Abstract [facility] Dental, Provider, DDS Social History Tobacco Use Types Packs/Day Years Used Date Smoking Tobacco: Never Assessed Sex and Gender Information Value Date Recorded Sex Assigned at Male 12/25/2021 10:34 AM EDT Legal Sex Male 10:34 AM EDT Gender Identity Male 12/25/2021 10:34 AM EDT Sexual Orientation Don't know 12/25/2021 10 :34 AM EDT documented as of this encounter Plan of Treatment Upcoming Encounters Date Type Department Care Team (Late st Contact Info) Description 06/11/2025 10:15 AM EDT Office Visit [facility] ADULT DENTAL [address] [place] [address] Cecelia Peña documented as of this encounter Visit Diagnoses Not on filedocumented in this encounter
--- OUTSIDE RECORDS SUMMARY | 2025-01-29 12:54 | XMS_ITS | Clinical Summary ---
Author Organization [employer] Address [address] [place] [address] [address] [place] [address] Care Team Providers Care Meat Grader Name Role Phone Unavailable Primary Care Provider Unavailabl e Allergies Active Allergy Reactions Criticality Noted Date Comments Morphine And Codeine Dizziness 12/04/2023 Medications allopurinol (Zyloprim) 300 MG tablet Take 300 mg by mouth Once per day. Active amLODIPine (Norvasc) 5 MG tablet Take 5 mg by mouth Once per day. Active aspirin 81 MG EC tablet Take 81 mg by mouth Once per day. Active atorvastatin (Lipitor) 40 MG tablet Take 40 mg by mouth Once per day. Active Colchicine 0.6 MG capsule Take 0.6 mg by mouth. 10/27/2019 Active fluticasone (Flonase) 50 MCG/ACT nasal spray INHALE TWO SPRAYS IN EACH NOSTRIL DAILY 10/15/2023 Active MULTIPLE VITAMINS-MINERA LS ER PO Take by mouth. Active cholecalciferol (Vitamin D-3) 25 MCG (1000 UT) capsule Take 2,000 Int'l Units by mouth. 12/03/2010 Active Myrbetriq 50 MG 24 hr tablet Take 50 mg by mouth at bedtime. 10/08/2023 Active Encounters Date Type Department Care Team Description 12/09/2024 9:00 AM EDT Office Visit [facility] ADULT DENTAL [address] [place] [address] Carmen Santoro from Last 3 Months Immunizations Immunization Administration Dates Next Due INFLUENZA VACCINE QUADRIVALE NT RECOMBINANT PRESERVATIVE FREE RIV4 11/26/2019 Influenza High-dose Quadrivalent Preservative Fr ee 12/05/2022 Influenza, High Dose Seasonal, Preservative Free 11/18/2023 Influenza, IIV3, injectable 12/01/2013, 3 Pneumococcal Conjugate PCV 20 08/14/2021 Zoster, Recombinant 08/15/2021,05/18/2021 Social History Tobacco Use Types Packs/Day Years Used Date Smoking Tobacco: Never Smokeless Tobacco: Never Tobacco Cessation:Counseling Given: Not Answered Alcohol Use Standard Drinks/Week Comments Defer 0 (1 standard drink = 0.6 oz pur e alcohol) Sex and Gender Information Value Date Recorded Sex Assigned at Male 12/25/2021 10:34 AM EDT Legal Sex Male 10:34 AM EDT Gender Identity Male 12/25/2021 10:34 AM EDT Sexual Orientation Don't know 12/25/2021 10 :34 AM EDT Last Filed Vital Signs Vital Sign Reading Time Taken Comments Blood Pressure 138/74 12/09/2024 9:00 AM EDT Pulse 60 12/04/2023 9:07 AM EDT Temperature - - Respiratory Rate - - Oxygen Saturation - - Inhaled Oxygen Concentration - - Weight - - Height - - Body Mass Index - - Plan of Treatment Upcoming Encounters Date Type Department Care Team (Late st Contact Info) Description 06/11/2025 10:15 AM EDT Office Visit [facility] ADULT DENTAL [address] [place] [address] Cecelia Peña Health Maintenance Due Date Last Done Comments Depression Screening 1945 Lipid Panel 1945 SDOH Screening 1945 Alcohol/Substance Use Screening 1958 Hepatitis C Screening 1964 DTaP/Tdap/Td Vaccines (1 - Tdap) 1965 RSV Patients and Patients Aged 60 years or older (1 - 1-dose 75+ series) 2021 COVID-19 Vaccine ( season) 2024 02/28/2023, 12/06/2021, 12/05/2020, Additional history exists Dental Oral Exam 06/10/2025 12/09/2024, 03/18/2018 Dental Prophylaxis 06/10/2025 12/09/2024, 03/19/2018 Tobacco Screening 12/09/2025 12/09/2024 Dental X-Ray: Bitewings 12/10/2025 12/10/19, 12/04/2023, 03/18/2018 Dental X-Ray: Full Mouth 12/04/2026 12/04/2023, 02/26 Zoster Vaccines Completed 08/15/2021, 05/18/2021 Influenza Vaccine Completed 10/29/2024, , 12/05/2022, Additional history exists Pneumococcal Vaccine: 50+ Years Completed 10/29/2024, 08/14/2021 Colonoscopy Discontinued 11/05/2024 Colorectal Cancer Screening Discontinued CT Colonography Discontinued FIT DNA/Cologuard Discontinued FIT Discontinued FOBT Discontinued HIB Vaccines Aged Out No longer eligi [...] patient's age to complete this topic Meningococcal Vaccine Aged Out No juan alberto hima eligible based on patient's age to complete this topic RSV under 20 months Aged Out No longe r eligible based on patient's age to complete this topic Rotavirus Vaccines Aged Out No longer eligible based on patient's age to complete this topic Sigmoidoscopy Discontinued Procedures Procedure Name Priority Date/Time Associated Diagnosis Comments COMPREHENSIVE PERIODONTAL EVALUATION - NEW OR ESTABLISHED PATIENT Routine 12/09/2024 9:00 AM EDT PERIODIC ORAL EVALUATION - ESTABLISHED PATIENT Routine 12/09/2024 9:00 AM EDT INTRAORAL - PERIAPICAL EACH ADDITIONAL RADIOGRAPHIC IMAGE Routine 12/09/2024 9:00 AM EDT INTRAORAL - PERIAPICAL FIRST RADIOGRAPHIC IMAGE Routine 12/09/2024 9:00 AM EDT BITEWINGS - 4 RADIOGRAPHIC IMAGES Routine 12/09/2024 9:00 AM EDT PROPHYLAXIS - ADULT Routine 12/09/2024 9 :00 AM EDT INTRAORAL - COMPLETE SERIES OF RADIOGRAPHIC IMAGES Routine 12/04/2023 9:00 AM EDT from Last 3 Months or Most Recently Relevant to Health Maintenance Insurance DENTAL - [employer] DENTAL DENTAL - [facility] FULL (MEDICAID)
--- OUTSIDE RECORDS SUMMARY | 2025-01-29 12:54 | XMS_ITS | Encounter Summary ---
Author Organization [employer] Address [address] [place] [address] [address], [place] [address] Care Team Providers Care Reimbursement Representative Name Role Phone Unavailable Primary Care Provider Unavailabl e Reason for Visit * Reason Onset Date Comments medical clearance 01/02/2024 Encounter Details Date Type Department Care Team ([facility] st Contact Info) Description 01/02/2024 Telephone [facility] ADULT DENTAL [address] [place] [address] Cecelia Peña medical clearance Social History Tobacco Use Types Packs/Day Years Used Date Smoking Tobacco: Never Smokeless Tobacco: Never Alcohol Use Standard Drinks/Week Comments Defer 0 (1 standard drink = 0.6 oz pur e alcohol) Sex and Gender Information Value Date Recorded Sex Assigned at Male 12/25/2021 10:34 AM EDT Legal Sex Male 10:34 AM EDT Gender Identity Male 12/25/2021 10:34 AM EDT Sexual Orientation Don't know 12/25/2021 10 :34 AM EDT documented as of this encounter Miscellaneous Notes * Telephone Encounter - Nettie Juarez - 01/02/2024 1:47 PM EST of patient called in verifying what it is that is needed from PCP to schedule appt for patientto come in. Explained that medical clearance was sent to PCP on 12/03 and that until that is received back in office with clearance we are unable to provide dental treatment. She states that the PCP did provide antibiotics to patient for dental treatment. It was explained to patient that we need the medical clerane form as well to be sent to office authorizing treatment and instructions and answers on questions asked DR documented in this encounter Plan of Treatment Upcoming Encounters Date Type Department Care Team (Late st Contact Info) Description 06/11/2025 10:15 AM EDT Office Visit [facility] ADULT DENTAL [address] [place] [address] Cecelia Peña documented as of this encounter Visit Diagnoses Not on filedocumented in this encounter
--- OUTSIDE RECORDS SUMMARY | 2025-01-29 12:55 | XMS_ITS | Clinical Summary ---
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 Medications Medication Sig Dispensed Refills Start Date End Date Status allopurinol (ZYLOPRIM) 300 MG tablet Take 300 mg by mouth daily. 0 05/19/2020 Active amLODIPine (NORVASC) tablet 5 mg Take 5 mg by mouth daily. 0 05/17/2020 Active atorvastatin (LIPITOR) tablet 40 mg Take 40 mg by mouth daily. 0 05/17/2020 Active aspirin EC 81 MG tablet Take 81 mg by mouth daily. 0 Active Multiple Vitamins-Minerals (MENS 50+ MULTI VITAMIN/MIN PO) Take by mouth. 0 Activ e indomethacin (INDOCIN) 25 MG capsule Take 25 mg by mouth as needed. 0 Active colchicine 0.6 MG tablet Take 0.6 mg by mouth as needed. 0 Active polyethylene glycol (MIRALAX) 17 g packet Take 17 g by mouth as needed. 0 Active Triamcinolone Acetonide (Nasacort Allergy 24HR) 55 MCG/ACT AERO spray or apply inside Nose. 0 Active Calcium Carb-Cholecalciferol (CALCIUM 600/VITAMIN D3 PO) Take by mouth. 0 Active Active Problems Problem Noted Date Diagnosed Date Syncope, cardiogenic 06/01/2020 Social History Tobacco Use Types Packs/Day Years Used Date Smoking Tobacco: Never Smokeless Tobacco: Never Sex and Gender Information Value Date Recorded Sex Assigned at Male 06/01/2020 10:06 PM EDT Gender Identity Not on file Sexual Orientation Not on file Job Start Date Occupation Industry Not on file Not on file Not on file Last Filed Vital Signs Vital Sign Reading Time Taken Comments Blood Pressure 130/77 06/02/2020 1:42 PM EDT Pulse 93 06/02/2020 1:42 PM EDT Temperature 36.3 C (97.4 F) 06/02/2020 11:04 AM EDT Respiratory Rate 16 06/02/2020 1:42 PM EDT Oxygen Saturation 100% 06/02/2020 1:42 PM EDT Inhaled Oxygen Concentration - - Weight 81.6 kg (180 lb) 06/01/2020 7:56 PM EDT Height 175.3 cm (5' 9 ) 06/01/2020 7:56 PM EDT Body Mass Index 26.58 06/01/2020 7:56 PM EDT Plan of Treatment Health Maintenance Due Date Last Done Comments Hepatitis C Screening 1945 COVID-19 Vaccine (#1) 02/04/1946 Depression Screening 1958 Preventative Health Evaluation 1964 DTap / Tdap / Td (1 - Tdap) 1965 Shingrix-Zoster Vaccine (1 of 2) 1996 Fall Risk Assessment 08/06/2011 Pneumococcal Vaccine (1 of 1 - PCV) 08/06/2011 RSV Adult > 60+ Yrs or Pregn ant (1 - 1-dose 75+ series) 2021 Influenza Vaccine (#1) 2024 Hepatitis B Vaccines Aged Out No long er eligible based on patient's age to complete this topic RSV Ped < 20 months Aged Out No longe r eligible based on patient's age to complete this topic Advance Directives For more information, please contact: [phone] Latest Code Status on File Code Status Date Activated Date Inactivated Comments Full Code 06/01/2020 11:55 PM 06/02/2020 8:09 PM This c ode status was ascertained in the following way: discussion with patient .
== END 2025-01-29 11:23 | disposition home or self-care (01) ==
LOC: HO.HPS 10:45
PROVIDERS: PCP Internal Medicine; Visit Provider Hospitalist
DX: J98.4 Other disorders of lung (principal); G47.33 Obstructive sleep apnea (adult) (pediatric); R06.00 Dyspnea, unspecified; J30.9 Allergic rhinitis, unspecified; R01.1 Cardiac murmur, unspecified
CPT/HCPCS: 99214

== ENCOUNTER → 2025-01-29 10:44 | Outpatient (BNVA) | payer MEDICARE, SELFPAY | PROVIDERS: PCP Internal Medicine; Visit Provider Hospitalist | DX: I27.20 Pulmonary hypertension, unspecified (principal); J98.4 Other disorders of lung; G47.33 Obstructive sleep apnea (adult) (pediatric); R01.1 Cardiac murmur, unspecified; R06.00 Dyspnea, unspecified; Z99.89 Dependence on other enabling machines and devices | CPT/HCPCS: 99212 ==